=== PATIENT | female | born 2000 | race Caucasian/White ===

== ENCOUNTER 2021-11-24 03:13 | Emergency (ER) | payer MEDICAID ==
[~2021-11-24] VITALS: Ht 154.9 cm; Wt 104.3 kg
--- NOTE | 2021-11-24 03:20 | NUR ---
DR. CULP AT BEDSIDE, MSE IN PROGRESS.
[2021-11-24] MEDS ORDERED: MAG HYDROX/AL HYDROX/SIMETH 30 ML LIQUID UDC PO ONE (03:30)
[2021-11-24] MEDS ORDERED: LIDOCAINE VISCUS 2% 15 ML UDC MM ONE (03:30)
[2021-11-24] MEDS ORDERED: LIDOCAINE VISCUS 2% 15 ML UDC ONE (03:34)
[2021-11-24] MEDS ORDERED: MAG HYDROX/AL HYDROX/SIMETH 30 ML LIQUID UDC ONE (03:35)
--- NOTE | 2021-11-24 03:45 | NUR ---
LAB AT BEDSIDE.
--- NOTE | 2021-11-24 05:06 | NUR ---
Patient discharged to home in stable condition. Written and verbal after care instructions given. Patient verbalizes understanding of instructions. Stressed follow up or return to ER for worsening s/s. Steady gait, denies any N/V, denies any pain/discomfort upon discharge. Accompanied by significant other.
[2021-11-24 05:08] VITALS: BP 120/70
== END 2021-11-24 05:09 | disposition home or self-care (01) ==
LOC: ER 03:13
DX: R12 Heartburn (principal); O26.891 Other specified pregnancy related conditions, first trimester; Z3A.01 Less than 8 weeks gestation of pregnancy; O26.21 Pregnancy care for patient with recurrent pregnancy loss, first trimester
CPT/HCPCS: 36415; A4663